=== PATIENT | female | born 1995 | race Two or more races ===

== ENCOUNTER 2025-04-13 13:02 | Emergency (ER) | payer MEDICAID, OTHER ==
[~2025-04-13] VITALS: Ht 157.5 cm; Wt 54.4 kg
[2025-04-13 13:14] VITALS: TEMP 98.6
[2025-04-13] MEDS ORDERED: ONDANSETRON HCL/PF 4 MG/2 ML VIAL ONE (13:38)
[2025-04-13] MEDS: IV NS 0.9% 1,000 ML BAG IV ONE (13:40)
[2025-04-13] MEDS: ONDANSETRON HCL/PF 4 MG/2 ML VIAL IVP ONE (13:42)
[2025-04-13 13:45] LABS: PLATELET COUNT (AUTO) 233 K/uL (150-450); RED BLOOD CELL COUNT(AUTO) 4.15 MIL/uL (4.0-5.2); RED CELL DISTRIBUTION WIDTH 12.4 % (11.5-15.0); WHITE BLOOD COUNT (AUTO) 4.5 K/uL (4.3-11.0)
[2025-04-13 14:03] LABS: PREGNANCY TEST URINE QUAL NEGATIVE (NEGATIVE)
[2025-04-13 14:04] LABS: APPEARANCE,URINE CLEAR (CLEAR); BLOOD, URINE 1+ Ery/uL (NEGATIVE); LEUKOCYTE ESTERASE ,URINE NEGATIVE (NEGATIVE); NITRITE, URINE NEGATIVE (NEGATIVE); UGLUCOSE NEGATIVE (NEGATIVE)
[2025-04-13 14:14] LABS: CALCIUM, SERUM 8.6 mg/dL (8.5-10.1); CREATININE 0.9 mg/dL (0.6-1.3); SODIUM SERUM 138.0 mmol/L (136-145); UREA NITROGEN, BLOOD 14.0 mg/dL (7-18)
[2025-04-13 14:19] LABS: ASPARTATE AMINOTRANSFERASE 34.0 U/L (15-37); TOTAL PROTEIN, SERUM 7.1 g/dL (6.4-8.2)
[2025-04-13] MEDS ORDERED: PHENOBARBITAL SODIUM 130 MG/ML VIAL IV ONE (14:30)
[2025-04-13 14:38] LABS: ADD URINE CULTURE NO; SQUAMOUS EPITHELIAL CELL,UR Few /HPF (None Seen)
[2025-04-13] MEDS: PHENOBARBITAL SODIUM 520 MG in IV NS 0.9% 100 ML IV ONE (15:05)
[2025-04-13] MEDS ORDERED: CHLO25CA22 PO (16:48)
[2025-04-13 17:08] VITALS: BP 135/85; O2SAT 99
== END 2025-04-13 17:07 | disposition home or self-care (01) ==
LOC: ER 13:12
DX: F10.239 Alcohol dependence with withdrawal, unspecified (principal); R11.0 Nausea; R25.1 Tremor, unspecified; R56.9 Unspecified convulsions; F41.9 Anxiety disorder, unspecified; F32.A Depression, unspecified; Y90.9 Presence of alcohol in blood, level not specified
CPT/HCPCS: 99284; 96365; 96361; 96375; 85025; 80048; 83690; 80076; 84703; 81001; 36415; J2560 ×2; J2405; J7030 ×2